=== PATIENT | female | born 1965 | race Caucasian/White ===

== ENCOUNTER 2024-04-29 14:30 | Outpatient (CLI) | payer OTHER ==
--- NOTE | 2024-04-29 21:04 | XRAY Report ---
PROCEDURE: Knee 1-2V RT INDICATIONS: KNEE PAIN, RIGHT TECHNIQUE: 2 views of the knee(s) were acquired. COMPARISON: None. FINDINGS: Bones: No fractures or dislocations. No suspicious bony lesions. Mild to moderate tricompartmenta l arthritic change most severe medially. No erosions. No significant osteophytes. Soft tissues: No knee joint effusion. No suspicious soft tissue calcifications or masses. IMPRESSION: Early arthritic changes most severe medially. Reviewed by: Ellie Ryan MD on 04/29/2024 9:03 PM PDT Approved by: Ellie Ryan MD on 04/29/2024 9:03 PM PDT Station ID: [id number]
--- NOTE | 2024-04-30 09:31 | XRAY Report ---
PROCEDURE: Hip w/Pelvis 2-3V RT INDICATIONS: HIP PAIN, RIGHT TECHNIQUE: 2 views of the hip were acquired. COMPARISON: None. FINDINGS: Bones: No fractures or dislocations. No suspicious bony lesions. Soft tissues: No suspicious soft tissue calcifications or masses. IMPRESSION: No acute bony abnormality. Reviewed by: Jaime Adams MD on 04/30/2024 8:29 AM AKDT Approved by: Jaime Adams MD on 04/30/2024 8:29 AM AKDT Station ID: [id number]
== END 2024-04-29 14:45 | disposition home or self-care (01) ==
LOC: DI.N 14:30
PROVIDERS: ATTEND Physician Assistant Medical
DX: M25.551 Pain in right hip (principal); M17.11 Unilateral primary osteoarthritis, right knee